=== PATIENT | female | born 1950 | race African-American/Black ===

== ENCOUNTER 2019-01-05 13:03 | Emergency (ER) | payer MEDICARE ==
[~2019-01-05] VITALS: Ht 167.6 cm; Wt 109.0 kg
[2019-01-05 13:07] VITALS: BP 181/95
[2019-01-05] MEDS ORDERED: OMEP40CA34 PO (13:13)
[2019-01-05] MEDS ORDERED: LISI10TA5 PO (13:13)
[2019-01-05] MEDS ORDERED: AMLO10TA80 PO (13:13)
[2019-01-05] MEDS ORDERED: HYDR12.529 PO (13:13)
[2019-01-05] MEDS ORDERED: LORA1TAB PO (13:13)
== END 2019-01-05 19:03 | disposition left against medical advice (07) ==
LOC: ER 13:03
DX: I10 Essential (primary) hypertension (principal); Z53.21 Procedure and treatment not carried out due to patient leaving prior to being seen by health care provider

== ENCOUNTER 2025-03-22 17:58 | Emergency (ER) | payer BC, MEDICAID ==
[~2025-03-22] VITALS: Ht 167.6 cm; Wt 104.0 kg
[~2025-03-22 17:58] MED LIST: AMLO10TA80 PO; HYDR12.529 PO; LISI10TA26 PO; LORA1TAB PO; OMEP40CA20 PO
[2025-03-22 18:18] VITALS: O2SAT 98
[2025-03-22] MEDS ORDERED: LIDO-53 TP (20:18)
[2025-03-22] MEDS ORDERED: TOPUD PO (20:18)
[2025-03-22] MEDS ORDERED: IBUP-2028 MT (20:18)
[2025-03-22] MEDS: ACETAMINOPHEN 325MG TABLET PO ONE (20:42)
[2025-03-22] MEDS: KETOROLAC 30MG/ML VIAL IM ONE (20:47)
[2025-03-22 21:53] VITALS: BP 128/70; PULSE 62; RESP 18; TEMP 37; O2SAT 98
== END 2025-03-22 22:04 | disposition home or self-care (01) ==
LOC: ER 17:58
DX: Z04.1 Encounter for examination and observation following transport accident (principal); M79.18 Myalgia, other site; I10 Essential (primary) hypertension; M19.042 Primary osteoarthritis, left hand; Z88.5 Allergy status to narcotic agent; V89.2XXA Person injured in unspecified motor-vehicle accident, traffic, initial encounter; Y93.89 Activity, other specified; Y92.89 Other specified places as the place of occurrence of the external cause; Y99.8 Other external cause status
CPT/HCPCS: 72040; 72100; 73130; 99284